=== PATIENT | male | born 1955 | race Two or more races ===

== ENCOUNTER 2020-04-11 15:20 | Emergency (ER) | payer MEDICAID ==
[~2020-04-11] VITALS: Ht 172.7 cm; Wt 79.8 kg
--- NOTE | 2020-04-11 15:20 | NUR ---
PT [address] [address] C/O BIZARRE BEHAVIOR. +HI. PT IS AAOX2, NOT IN RESPIRATORY DISTRESS, V/S STABLE, KEPT RESTED AND COMFORTABLE. WILL CONTINUE TO MONITOR. SITTER BEDSIDE.
--- NOTE | 2020-04-11 15:30 | NUR ---
URINAL GIVEN BUT UNABLE TO PROVIDE URINE SPECIMEN THIS TIME.
[2020-04-11 16:11] LABS: CALCIUM, SERUM 8.5 mg/dL (8.5-10.1); CARBON DIOXIDE 31 mmol/L (21-32); CHLORIDE 98 mmol/L (98-107); CREATININE 1.1 mg/dL (0.6-1.3); GLUCOSE 67 mg/dL (74-106); POTASSIUM 3.9 mmol/L (3.5-5.1); SODIUM SERUM 133 mmol/L (136-145); UREA NITROGEN, BLOOD 19 mg/dL (7-18)
[2020-04-11 16:12] LABS: BASOPHILS # (AUTO) 0.1 /CMM (0.0-0.2); EOSINOPHILS % (AUTO) 5.2 % (0.0-6.0); HEMATOCRIT 41 % (39-51); HEMOGLOBIN 13.6 g/dL (13.5-17.5); LYMPHOCYTES # (AUTO) 1.4 /CMM (0.8-4.8); LYMPHOCYTES % (AUTO) 17.9 % (20.0-44.0); MEAN CORPUSCULAR HGB CONC 33 g/dl (31.0-36.0); MEAN CORPUSCULAR VOLUME 89 fL (80-96); MONOCYTES # (AUTO) 0.9 /CMM (0.1-1.30); MONOCYTES % (AUTO) 11.1 % (2.0-12.0); NEUTROPHILS # (AUTO) 5.2 /CMM (1.8-8.9); NEUTROPHILS % (AUTO) 64.8 % (43.0-81.0); PLATELET COUNT (AUTO) 387 /CMM (150-450); RED BLOOD CELL COUNT(AUTO) 4.65 MIL/uL (4.5-6.0)
[2020-04-11 16:15] LABS: BILIRUBIN,URINE Negative (NEGATIVE); BLOOD, URINE Negative Ery/uL (NEGATIVE); COLOR,URINE Yellow (YELLOW); LEUKOCYTE ESTERASE ,URINE Negative (NEGATIVE); NITRITE, URINE Negative (NEGATIVE); PROTEIN,URINE Negative (NEGATIVE); UGLUCOSE Negative (NEGATIVE); UROBILINOGEN,URINE 0.2 EU/dL (0.2)
[2020-04-11 16:19] LABS: ALANINE AMINOTRANSFERASE 60 U/L (12-78); ALBUMIN 3.3 g/dL (3.4-5.0); ALCOHOL, BLOOD < 3 mg/dL (0-0); ALKALINE PHOSPHATASE 99 U/L (46-116); ASPARTATE AMINOTRANSFERASE 46 U/L (15-37); BILIRUBIN,DIRECT 0.1 mg/dL (0.0-0.2); BILIRUBIN,TOTAL 0.2 mg/dL (0.2-1.0); TOTAL PROTEIN, SERUM 7.5 g/dL (6.4-8.2)
[2020-04-11 16:20] LABS: ACETAMINOPHEN 0 ug/ml (10-30)
--- NOTE | 2020-04-11 19:55 | NUR ---
COVID SWAB COLLECTED, CALLED LAB FOR CLINICAL TRIAL DATA MANAGER
[2020-04-11] MEDS ORDERED: OLANZAPINE 5 MG TABLET ONE (20:19)
--- NOTE | 2020-04-11 20:23 | NUR ---
PT PROVIDED WITH SANDWICH AND JUICE PER REQUEST. RESTING COMFORTABLY IN BED. VITAL SIGNS STABLE. SITTER AT BEDSIDE, WILL CONTINUE TO MONITOR
[2020-04-11] MEDS ORDERED: OLANZAPINE 5 MG TABLET PO ONE (20:30)
--- NOTE | 2020-04-11 20:51 | NUR ---
COVID NEGATIVE, PER LAB
--- NOTE | 2020-04-11 22:08 | NUR ---
PER [facility] FROM [facility], NO BEDS AVAILABLE AT THIS TIME. AWARE
--- NOTE | 2020-04-12 05:59 | NUR ---
PT RESTING COMFORTABLY IN BED. VITAL SIGNS STABLE. NO ACUTE DISTRESS NOTED AT THIS TIME. SITTER STILL AT BEDSIDE, WILL CONTINUE TO MONITOR
--- NOTE | 2020-04-12 07:15 | NUR ---
PT STATED HE IS NOT SUICIDAL ANYMORE AND WANTS TO GO BACK HOME TO HIS . DR.LUTSKY ALVARENGA.
--- NOTE | 2020-04-12 07:20 | NUR ---
AT BEDSIDE FOR PT EVAL.
--- NOTE | 2020-04-12 07:26 | NUR ---
Patient given written and verbal discharge instructions. Patient verbalizes understanding of instructions. Patient is ambulatory with steady gait. Refuses offer of [facility] placement. Patient given list of available shelters in surrounding area.
[2020-04-12 07:28] VITALS: BP 131/78
== END 2020-04-12 07:28 | disposition home or self-care (01) ==
LOC: ER 15:23
DX: F20.9 Schizophrenia, unspecified (principal); F31.9 Bipolar disorder, unspecified; Z59.0 Homelessness; Z20.828 Contact with and (suspected) exposure to other viral communicable diseases; G20 Parkinson's disease; H26.9 Unspecified cataract; R45.851 Suicidal ideations; Z82.49 Family history of ischemic heart disease and other diseases of the circulatory system; R78.4 Finding of other drugs of addictive potential in blood
CPT/HCPCS: 36415; 80048; 80076; 80299; 80307; 80320; 81001; 85025; 87426; 99285; C9803; G0480